=== PATIENT | male | born 1955 | race Caucasian/White ===

== ENCOUNTER 2017-05-12 16:20 | Emergency (ER) | payer OTHER ==
[2017-05-12 16:35] VITALS: BP 134/76
--- NOTE | 2017-05-12 17:10 | EDM.PDOC ---
ED HPI GENERAL MEDICAL PROBLEM - General Chief Complaint: Fever Stated Complaint: HEAD ACH,FEVER,CHILLS/RED SIRE ON STOMACH Time Seen by Provider: 05/12/17 16:59 - History of Present Illness INITIAL COMMENTS - FREE TEXT/NARRATIVE: 62-year-old male presents emergency room with abdominal discomfort generalized aches and pains. Over the last 2 days the patient has had increasing abdominal discomfort he's had pain swelling and redness over his repair site from his umbilical hernia that was repaired about 4 years ago this was complicated with a postoperative infection. The patient has a cough this is somewhat chronic and he is feeling fatigued the fatigue is not new. Apparently he's had a thorough cardiac evaluation that was unrevealing. Headache Pain Score (Numeric/FACES): 7 - Related Data Allergies Allergy/AdvReac Type Severity Reaction Status Date / Time No Known Allergies Allergy Verified 05/12/17 16:35 Home Meds: Home Meds Clindamycin HCl 300 mg PO Q6H #40 capsule 05/12/17 [Rx] Levothyroxine [Synthroid] 88 mcg PO ACBREAKFAST 05/12/17 [History] Lexapro. 1 tab PO DAILY 05/12/17 [History] Past Medical History Psychiatric History: Reports: Depression Endocrine/Metabolic History: Reports: Hypothyroidism - Past Surgical History HEENT Surgical History: Reports: Adenoidectomy, Tonsillectomy GI Surgical History: Reports: Hernia, Abdominal Social & Family History - Tobacco Use Smoking Status *Q: Never Smoker - Caffeine Use Caffeine Use: Reports: Coffee - Recreational Drug Use Recreational Drug Use: No ED ROS GENERAL - Review of Systems Review Of Systems: See Below Constitutional: Reports: Fever, Chills. Denies: No Symptoms HEENT: Reports: No Symptoms Respiratory: Reports: Cough. Denies: Sputum Cardiovascular: Reports: Dyspnea on Exertion. Denies: Chest Pain, Edema, Palpitations, Syncope GI/Abdominal: Reports: Abdominal Pain. Denies: Constipation, Diarrhea, Nausea, Vomiting : Reports: No Symptoms ED EXAM, GENERAL - Physical Exam Exam: See Below Exam Limited By: No Limitations General Appearance: Alert, No Apparent Distress Head: Atraumatic, Normocephalic Neck: Normal Inspection, Supple, Non-Tender, Full Range of Motion, Other (No carotid bruits or radiating murmurs). No: Lymphadenopathy (L), Lymphadenopathy (R) Respiratory/Chest: No Respiratory Distress, Lungs Clear, Normal Breath Sounds Cardiovascular: Regular Rate, Rhythm, No Edema, Other (He has a holosystolic murmur heard best in the right upper sternal margin most consistent with an AST murmur however this does not radiate into his neck) GI/Abdominal: Normal Bowel Sounds, Soft, Other (No deep tenderness with palpation however his umbilical hernia repair site is red and swollen and warm as well as tender to palpation.) Back Exam: Normal Inspection. No: CVA Tenderness (L), CVA Tenderness (R) Extremities: Normal Inspection, No Pedal Edema Neurological: Alert, Oriented, Normal Cognition Course - Vital Signs Last Recorded V/S: Last Vital Signs Temp 37.7 C 05/12/17 16:31 Pulse 86 05/12/17 16:31 Resp 16 05/12/17 16:31 BP 134/76 05/12/17 16:31 Pulse Ox 94 L 05/12/17 17:53 - Orders/Labs/Meds Orders: Active Orders 24 hr Category Date Time Status EKG Documentation Completion [RC] STAT Care 05/12/17 17:27 Active RT Post Treatment Assessment [RC] Click to Edit Care 05/12/17 17:24 Inactive RT Pre-Treatment Assessment [RC] Click to Edit Care 05/12/17 17:24 Inactive RT Pre-Treatment Assessment [RC] Click to Edit Care 05/12/17 17:48 Active Abdomen Pelvis w Cont [CT] Stat Exams 05/12/17 17:18 Taken Chest 2V [CR] Stat Exams 05/12/17 17:15 Taken Clindamycin Phosphate [Cleocin] 600 mg Med 05/12/17 20:31 Ordered Sodium Chloride 0.9% [Normal Saline] 100 ml IV ONETIME Sodium Chloride 0.9% [Normal Saline] 1,000 ml Med 05/12/17 17:30 Active IV ASDIRECTED Medication Orders Sodium Chloride (Normal Saline) 1,000 mls @ 150 mls/hr IV ASDIRECTED JOSEFA Last Admin: 05/12/17 17:41 Dose: 150 mls/hr Clindamycin Phosphate 600 mg/ (Sodium Chloride) 104 mls @ 100 mls/hr IV ONETIME ONE Stop: 05/12/17 21:33 Labs: Laboratory Tests 05/12/17 05/12/17 05/12/17 Range/Units 17:25 17:25 17:25 WBC 8.16 (4.23-9.07) K/mm3 RBC 4.50 L (4.63-6.08) M/mm3 Hgb 14.7 (13.7-17.5) gm/L Hct 41.4 (40.1-51.0) % MCV 92.0 (79.0-92.2) fl MCH 32.7 H (25.7-32.2) pg MCHC 35.5 (32.2-35.5) g/dl RDW Std Deviation 40.3 (35.1-43.9) fL Plt Count 158 L (163-337) K/mm3 MPV 9.7 (9.4-12.3) fl Neutrophils % (Manual) 82 H (40-60) % Band Neutrophils % 0 (0-10) % Lymphocytes % (Manual) 11 L (20-40) % Atypical Lymphs % 0 % Monocytes % (Manual) 6 (2-10) % Eosinophils % (Manual) 1 (0.8-7.0) % Basophils % (Manual) 0 L (0.2-1.2) Platelet Estimate Adequate RBC Morph Comment Normal Sodium 139 (136-145) mEq/L Potassium 3.7 (3.5-5.1) mEq/L Chloride 103 (98-107) mEq/L Carbon Dioxide 29 (21-32) mEq/L Anion Gap 10.7 (5-15) BUN 20 H (7-18) mg/dL Creatinine 1.5 H (0.7-1.3) mg/dL Est Cr Clr Drug Dosing 59.19 mL/min Estimated GFR (MDRD) 48 (>60) mL/min BUN/Creatinine Ratio 13.3 L (14-18) Glucose 118 H (74-106) mg/dL Calcium 8.5 (8.5-10.1) mg/dL Total Bilirubin 0.9 (0.2-1.0) mg/dL AST 18 (15-37) U/L ALT 23 (16-63) U/L Alkaline Phosphatase 86 (46-116) U/L Total Protein 7.4 (6.4-8.2) g/dl Albumin 3.3 L (3.4-5.0) g/dl Globulin 4.1 gm/dL Albumin/Globulin Ratio 0.8 L (1-2) Urine Color Yellow (Yellow) Urine Appearance Clear (Clear) Urine pH 6.0 (5.0-8.0) Ur Specific [place] 1.025 (1.005-1.030) Urine Protein 1+ H (Negative) Urine Glucose (UA) Negative (Negative) Urine Ketones Negative (Negative) Urine Occult Blood Negative (Negative) Urine Nitrite Negative (Negative) Urine Bilirubin Negative (Negative) Urine Urobilinogen 1.0 (0.2-1.0) Ur Leukocyte Esterase Negative (Negative) Urine RBC 0-5 (0-5) /hpf Urine WBC 0-5 (0-5) /hpf Ur Epithelial Cells 0-5 (0-5) /hpf Urine Bacteria Rare (FEW) /hpf Urine Mucus Not seen (FEW) /hpf Meds: Medications Generic Name Dose Route Start Last Admin Trade Name Freq PRN Reason Stop Dose Admin Sodium Chloride 1,000 mls @ 150 mls/hr 05/12/17 17:30 05/12/17 17:41 Normal Saline IV 150 mls/hr ASDIRECTED JOSEFA Administration Clindamycin Phosphate 600 mg/ 104 mls @ 100 mls/hr 05/12/17 20:31 Sodium Chloride IV 05/12/17 21:33 ONETIME ONE Discontinued Medications Generic Name Dose Route Start Last Admin Trade Name Freq PRN Reason Stop Dose Admin Albuterol 8 gm 05/12/17 17:23 Proventil Hfa INH 05/12/17 17:24 ONETIME ONE Albuterol 6.7 gm 05/12/17 17:48 05/12/17 17:53 Proventil Hfa INH 05/12/17 17:49 2 puff ONETIME ONE Administration Diatrizoate Meglum/Diatrizoate Sod 90 ml 05/12/17 18:27 05/12/17 18:37 Gastrografin 37% PO 05/12/17 18:28 90 ml ONETIME ONE Administration Sodium Chloride 500 mls @ 500 mls/hr 05/12/17 18:52 05/12/17 19:23 Normal Saline IV 05/12/17 19:51 500 mls/hr .BOLUS ONE Administration Iopamidol 100 ml 05/12/17 18:27 05/12/17 18:37 Isovue-370 (76%) IVPUSH 05/12/17 18:28 100 ml ONETIME ONE Administration Lidocaine/Epinephrine 20 ml 05/12/17 19:56 Xylocaine 1% With Epinephrine 1:100,000 INJECT 05/12/17 19:57 ONETIME STA Sodium Chloride 10 ml 05/12/17 18:27 05/12/17 18:37 Saline Flush FLUSH 05/12/17 18:28 10 ml ONETIME ONE Administration - Re-Assessments/Exams Free Text/Narrative Re-Assessment/Exam: 05/12/17 19:49 Patient was started on albuterol inhaler this may be held helping labs were obtained he was given fluid with a creatinine of 1.5 he did receive a abdominal pelvic CT which shows a abscess in the supraumbilical area. Case discussed with Dr. Valladares who is here and will evaluate the patient. 05/12/17 20:39 Dr. Valladares did a I&D Departure - Departure Time of Disposition: 20:35 Disposition: Home, Self-Care 01 Clinical Impression: Abdominal wall abscess at site of surgical wound - Discharge Information Prescriptions: Clindamycin HCl 300 mg PO Q6H #40 capsule Referrals: Billie Garcia NP [Primary Care Provider] - Forms: ED Department Discharge Additional Instructions: Return to the ER with any questions or problems. Take the clindamycin as directed. Return here for recheck around 9:00 AM tomorrow. Use the pain meds as needed. Allow 12 hours after using this before driving or returning to work. - My Orders Last 24 Hours: My Active Orders 05/12/17 17:15 Chest 2V [CR] Stat 05/12/17 17:18 Abdomen Pelvis w Cont [CT] Stat 05/12/17 17:24 RT Post Treatment Assessment [RC] Click to Edit RT Pre-Treatment Assessment [RC] Click to Edit 05/12/17 17:27 EKG Documentation Completion [RC] STAT 05/12/17 17:30 Sodium Chloride 0.9% [Normal Saline] 1,000 ml IV ASDIRECTED 05/12/17 17:48 RT Pre-Treatment Assessment [RC] Click to Edit 05/12/17 20:31 Clindamycin Phosphate [Cleocin] 600 mg Sodium Chloride 0.9% [Normal Saline] 100 ml IV ONETIME - Assessment/Plan Last 24 Hours: My Active Orders 05/12/17 17:15 Chest 2V [CR] Stat 05/12/17 17:18 Abdomen Pelvis w Cont [CT] Stat 05/12/17 17:24 RT Post Treatment Assessment [RC] Click to Edit RT Pre-Treatment Assessment [RC] Click to Edit 05/12/17 17:27 EKG Documentation Completion [RC] STAT 05/12/17 17:30 Sodium Chloride 0.9% [Normal Saline] 1,000 ml IV ASDIRECTED 05/12/17 17:48 RT Pre-Treatment Assessment [RC] Click to Edit 05/12/17 20:31 Clindamycin Phosphate [Cleocin] 600 mg Sodium Chloride 0.9% [Normal Saline] 100 ml IV ONETIME
[2017-05-12] MEDS ORDERED: Albuterol 6.7 GM Inhaler INH ONE ×2 (17:23→17:48)
[2017-05-12] MEDS ORDERED: Sodium Chloride 0.9% 1,000 ML IV SCH (17:30)
[2017-05-12] MEDS ORDERED: Sodium Chloride 0.9% 10 ML Syringe FLUSH ONE (18:27)
[2017-05-12] MEDS ORDERED: Iopamidol 755 Mg/ML 100 ML Bottle IVPUSH ONE (18:27)
[2017-05-12] MEDS ORDERED: Diatrizoate Meglumine/Diatrizoate Sodium 37% 120 ML Bottle PO ONE (18:27)
[2017-05-12] MEDS ORDERED: Sodium Chloride 0.9% 500 ML IV ONE (18:52)
[2017-05-12] MEDS ORDERED: Lidocaine 1% with EPINEPHrine 1:100,000 20 ML MDV INJECT STA (19:56)
[2017-05-12] MEDS ORDERED: Clindamycin Phosphate 600 MG in Sodium Chloride 0.9% 100 ML IV ONE (20:31)
--- NOTE | 2017-05-14 11:40 | CR ---
Chest: Two views of the chest were obtained. Comparison: No prior chest x-ray. Heart size and mediastinum are within normal limits. Lungs are clear. Minimal scoliosis is noted within the spine. Incidental surgical clips are seen within the upper abdomen. Impression: 1. Incidental findings. Nothing acute is identified on two-view chest x-ray. Diagnostic code #2
--- NOTE | 2017-05-14 11:40 | CT ---
CT abdomen and pelvis Technique: Multiple axial sections were obtained from above the dome of the diaphragm inferiorly through the pubic symphysis. Intravenous and oral contrast was utilized. Delayed images were obtained through the bladder. Findings: Small portion of the visualized lung bases shows nothing acute. Liver shows a lesion within the left lobe measuring about 3.7 cm in size. Peripheral enhancement is seen and this finding is most likely due to hemangioma. No additional abnormality seen within the liver. Spleen appears within normal limits. Adrenal glands show no nodule. Soft tissue nodule noted medial to the spleen which is felt compatible with accessory splenic tissue. Kidneys show symmetric contrast enhancement without hydronephrosis or mass. Pancreas is within normal limits. Aorta shows no aneurysmal dilatation with no retroperitoneal adenopathy being seen. Fluid collection noted within the anterior abdominal wall near the umbilicus. This measures up to 5.7 cm in size. Very slight haziness around this fluid collection is seen as well as some adjacent skin thickening. No pelvic mass or adenopathy is seen. Mild increased stool noted throughout the colon. No free fluid is identified. Appendix is seen which appears normal. Delayed images show contrast within the distal ureters and within the bladder. Bone window settings were reviewed which show disc space narrowing and vacuum phenomenon at the L5-S1 disc. Lesser degenerative change scattered throughout the spine. Impression: 1. 5.7 cm fluid collection within the anterior abdominal wall near the umbilicus. Please correlate if patient has any symptoms of infection for this to represent an abscess. Findings otherwise could represent old seroma from previous surgery. 2. Other incidental findings as noted above. Diagnostic code #3 I agree with preliminary report issued by [facility] ([facility] report finalized on 05/12/17, 7:57 PM Central Time)
== END 2017-05-12 21:55 | disposition home or self-care (01) ==
LOC: JD.ED 16:20
DX: T81.4XXA Infection following a procedure, initial encounter (principal); L02.211 Cutaneous abscess of abdominal wall
CPT/HCPCS: 10061; 36415; 71020; 74177; 80053; 81001; 85025; 87075; 87205; 87804; 93005; 94664; 96361; 96365; 99285; A9270; J7030; J7040; J7050; Q9963; Q9967; 87077; 87186; 99284

== ENCOUNTER 2017-05-13 10:54 | Emergency (ER) | payer OTHER ==
--- NOTE | 2017-05-13 12:51 | PCM.PN ---
- General Info Date of Service: 05/13/17 Functional Status: Reports: Pain Controlled - Patient Data Vitals - Most Recent: Last Vital Signs Temp 99.3 F 05/13/17 11:10 Pulse 73 05/13/17 11:01 Resp 16 05/13/17 11:01 BP 125/73 05/13/17 11:01 Pulse Ox 95 05/13/17 11:01 Weight - Most Recent: 250 lb - Exam Wound/Incisions: Drainage, Erythema, Other (appears adequately drained. Appt to be made with Dr. Arthur in [facility].) - Problem List & Annotations (1) Abdominal wall abscess at site of surgical wound SNOMED Code(s): 86028515 Code(s): T81.4XXA - INFECTION FOLLOWING A PROCEDURE, INITIAL ENCOUNTER Status: Acute Current Visit: No - Problem List Review Problem List Initiated/Reviewed/Updated: Yes
--- NOTE | 2017-06-05 13:37 | ER ---
HISTORY OF PRESENT ILLNESS: I was asked to see this gentleman in consultation by Dr. Menendez. He presents with a several-day history of fever, chills, and periumbilical pain. Pertinent history is that he had an umbilical/epigastric hernia repair several years ago in [place] and mesh was used. A CT scan was performed which demonstrated a subcu abscess containing probably 10 to 20 mL of purulent material. After appropriate discussion, it was explained to the patient the need for opening the wound and for packing it and that the problem was that there was mesh present and this might represent a mesh infection and that he will need to go to [place] where the procedure was performed, by I believe Dr. Arthur. With local anesthesia, the wound was opened through a vertical incision. Cultures were taken. The purulent material was consistent with that of a staph type infection. The patient was started on clindamycin 300 mg q.6 h. because of a questionable allergy to penicillin. He did not require any other medications and he will eventually be followed up with Dr. Arthur and make an appointment. The wound was packed with iodoform gauze 0.5 inch and dressings were applied and he was given extra dressings until he can see his surgeon in [place]. BJ /[id number]
== END 2017-05-13 12:58 | disposition home or self-care (01) ==
LOC: JD.ED 10:54
CPT/HCPCS: 99283